=== PATIENT | female | born 2000 | race Caucasian/White ===

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

== ENCOUNTER 2021-01-06 15:52 | Emergency (ER) | payer SELFPAY ==
[~2021-01-06] VITALS: Ht 167.6 cm; Wt 90.9 kg
[~2021-01-06 15:52] MED LIST: CALCIUM CARBON650 M2 PO; PRIL40 PO; VITAMIN D 400400 IU PO
[2021-01-06 17:25] VITALS: BP 122/64; PULSE 80; TEMP 98.2
== END 2021-01-06 17:38 | disposition home or self-care (01) ==
LOC: COL.ER 15:52
DX: S86.911A Strain of unspecified muscle(s) and tendon(s) at lower leg level, right leg, initial encounter (principal); X58.XXXA Exposure to other specified factors, initial encounter